=== PATIENT | male | born 1990 | race Two or more races ===

== ENCOUNTER 2021-04-08 16:50 | Emergency (ER) | payer OTHER, BC ==
[2021-04-08 16:57] VITALS: TEMP 98.1; BMI 28.3
[2021-04-08] MEDS ORDERED: IBUPROFEN 600 MG TABLET (FP) PO ONE (17:54)
[2021-04-08] MEDS ORDERED: ACETAMINOPHEN 325 MG TABLET (FP) PO ONE (17:54)
[2021-04-08] MEDS ORDERED: LIDOCAINE 5% TOPICAL PATCH TP ONE (17:54)
[2021-04-08] MEDS ORDERED: METHOCARBAMOL 500 MG TABLET PO ONE (17:55)
[2021-04-08] MEDS ORDERED: METHOCARBAMOL 500 MG TABLET ONE (17:58)
[2021-04-08] MEDS ORDERED: LIDOCAINE 5% TOPICAL PATCH ONE (17:58)
[2021-04-08] MEDS ORDERED: ACETAMINOPHEN 325 MG TABLET (FP) ONE (17:58)
[2021-04-08 19:51] VITALS: BP 128/88; PULSE 78
[2021-04-08] MEDS ORDERED: LIDOCAINE PATCH REMOVAL MC SCH (22:00)
== END 2021-04-08 19:51 | disposition home or self-care (01) ==
LOC: JER 16:50
DX: S06.0X0A Concussion without loss of consciousness, initial encounter (principal)
CPT/HCPCS: 70450-TC; 72125-TC; 99284-25